=== PATIENT | female | born 1980 | race Caucasian/White ===

== ENCOUNTER → 2019-06-06 09:25 | Outpatient (CLI) | payer MEDICAID, SELFPAY ==
--- NOTE | 2019-06-06 09:33 | MRI_ITS ---
STUDY: BILATERAL BREAST MR WITHOUT AND WITH CONTRAST REASON FOR EXAM: Female, 38 years old. right breast ca TECHNIQUE: Multi-sequence multi-echo imaging of both breasts was performed with a dedicated breast coil. T1-weighted and T2-weighted images were performed before the administration of contrast. T1-weighted images were also performed after the administration of IV 17 CC DOTAREM without complications. COMPARISON: Mammogram dated 05/08/2019 and breast ultrasound dated 05/08/2019 FINDINGS: RIGHT BREAST: The breast tissue is scattered fibroglandular densities with no background enhancement. Exam is somewhat limited due to the anterior portion of the breast touching the breast coil which does produce signal artifact in this location. Malignancy in this location could be obscured. There is an 18 mm mass in the superior outer aspect of the right breast approximately 10 cm from nipple. This was biopsied and shown to represent a malignancy. There are no other abnormal enhancing masses or areas of non-mass enhancement in the right breast. There is an abnormal 2 cm axillary lymph node which was biopsied and shown to represent malignancy. There are additional lymph nodes which appear to have thickened cortexes and minimal enhancement. These could potentially have cancer within them. LEFT BREAST: The breast tissue is scattered fibroglandular densities with no background enhancement. Exam is somewhat limited due to the anterior portion of the breast touching the breast coil which does produce signal artifact in this location. Malignancy in this location could be obscured. There are no abnormal enhancing masses or areas of non-mass enhancement in the left breast. There are no enlarged or abnormal lymph nodes. There is no abnormality in the visualized regions of the chest or liver. MRI/Breast Bilateral W/O and W IMPRESSION: There is a malignancy in the right breast and a malignant right axillary lymph node. Surgical consultation is recommended as well as radiation oncology and medical oncology consultation. CATEGORY: BIRADS Category 6: Known Biopsy-Proven Malignancy - Appropriate Action Should Be Taken. A letter regarding these results will be sent to the patient by the facility within 30 days. Electronically Signed: Felicia Puente DO at 15:45 EDT Tel , Service support ,
== END ==
PROVIDERS: PCP Family Medicine; Referring Provider Internal Medicine Hematology & Oncology; Visit Provider Internal Medicine Hematology & Oncology
DX: C50.511 Malignant neoplasm of lower-outer quadrant of right female breast (principal)
CPT/HCPCS: 77049; A9575; A4216; C8908

== ENCOUNTER 2022-03-25 05:57 | Day surgery (SDC) | payer MEDICAID, SELFPAY ==
[2022-03-25] VITALS (7 sets, daily range): BP systolic 123–143; BP diastolic 81–102; PULSE 66–81; RESP 16–18; TEMP 36.1–37.3; O2SAT 98–100; BMI 35.6
[2022-03-25 06:41] LABS: Hematocrit 42.5 % (37-47); Hemoglobin 13.5 g/dL (12.0-15.0); Mean Corp Hgb Conc 31.8 g/dL (32-36); Mean Corpuscular Hgb 24.9 pg (27.0-32.0); Mean Corpuscular Volume 78.3 fL (81-99); Mean Platelet Vol. 9.3 fl (6.2-12.0); Platelet Count 237 K/mm3 (150-450); RBC Distribution Width CV 14.6 % (11.6-14.6); RBC Distribution Width SD 41.1 fl (35.1-43.9); Red Blood Count 5.43 M/mm3 (4.2-5.4); White Blood Count 8.5 K/mm3 (4.4-11.0)
[2022-03-25 06:42] LABS: Internal QC Validated? YES +Cl - CLEAR BKGD; Pregnancy, Urine Negative Negative
[2022-03-25] MEDS: Lactated Ringers 1,000 ML 15 ML IV (06:48)
--- NOTE | 2022-03-25 07:27 | DCINST_ITS ---
Discharge Instructions Diet Discharge Diet: No restrictions Activity Discharge Activity: May Drive (once you are more than 24 hours out from surgery) and May Shower (once you are more than 24 hours out from surgery) Return to work on:: 03/28/22 May resume sexual activity in: 1-2 weeks (Nothing in the vagina and no soaking in water for 1-2 weeks while you are having the vaginal bleeding) Weight Bearing Status: Weight bearing as tolerated Lifting Restrictions: None Dressing / Incision Call your doctor if you observe: Fever of 101 or Higher, Coldness, Increased Pain, Numbness or Tingling, Change in Color, Inability to urinate, Inability to have a bowel movement, Using more than 1 pad per hour, Shortness of breath, Dizziness, Fainting spells, Swelling in the ankles, Chest pain, Increased palpitations (irregular heartbeat), Calf discomfort and Uncontrolled pain Follow Up Care Please Follow Up With: Gabbie Barrera DO When: 1-2 weeks post op Test Results: Test results from this visit will be discussed in further detail at your follow- up appointment, if applicable. Discharge Plan Admission Primary Reason for Your Visit: surgery Attending Provider: Gabbie Barrera Primary Care Provider: Tania PhysicianCristal Primary Discharge Orders/Prescriptions Prescriptions: Continued multivitamin Tablet 1 tab PO DAILY omeprazole 40 mg capsule,delayed release(DR/EC) 40 mg PO DAILY Label Comments: TAKE 1 CAPSULE BY MOUTH ONCE DAILY citalopram 20 mg tablet 20 mg PO DAILY Label Comments: TAKE 1 TABLET BY MOUTH ONCE DAILY montelukast [Singulair] 10 mg Tablet 10 mg PO DAILY albuterol sulfate 90 mcg/actuation HFA aerosol inhaler 2 puff INHALATION PRN PRN (Reason: ASTHMA) Label Comments: INHALE 2 PUFFS BY MOUTH 4 TIMES DAILY NEEDED DIRECTED pseudoephedrine HCl 60 mg Tablet 60 mg PO Q6H PRN (Reason: DECONGESTANT) budesonide-formoterol [Symbicort] 160-4.5 mcg/actuation HFA aerosol inhaler 2 puff INHALATION BID Label Comments: INHALE 2 PUFFS BY MOUTH TWICE DAILY DIRECTED levocetirizine [Xyzal] 5 mg Tablet 5 mg PO DAILY Discontinued metronidazole 500 mg tablet 500 mg PO BID Label Comments: TAKE 1 TABLET BY MOUTH TWICE DAILY FOR 7 DAYS Referrals / Follow Up: Care Physician,No Primary [Primary Care Provider] - Disposition Disposition (needs filled in before D/C Order can be placed): Home, Self Care
--- NOTE | 2022-03-25 07:30 | EMB_PTH ---
PATIENT: WILFRIDO AN LOC: [facility] – [place] U#:[id number] AGE/SX: 41/F ROOM: RE03/25/[address]: Dr. Gabbie Barrera DO : 1980 BED: DIS: 03/25/2022 SPEC #: [id number] RECD: 03/25/22 11:08 STATUS: JESSICA MARK #: [id number] TEENA: 03/25/22 07:[address]: Gabbie Barrera DEPT: SURGICAL PATHOLOGY RECD BY: Shelby Garcia ENTERED: 03/25/22 13:41 SP TYPE: ENDOM BX/C ALEXANDREA DR: No Primary Care Phys Tissues: Endometrium, NOS Procedures: Surgery Specimen Level IV HEADER OPERATION: Hysteroscopy, D & C Symphion, polypectomy PRE-OP DIAGNOSIS: PMB, endometrial polyp TISSUE SUBMITTED: Endometrial curettings MICROSCOPIC DIAGNOSIS Endometrium, curettings: Mildly disordered proliferative endometrium. Rare fragments of benign squamous mucosa and squamous metaplastic epithelium. AM:rafael 03/28/2022 MICROSCOPIC DESCRIPTION Slides are reviewed. GROSS DESCRIPTION Received in fixative is one container labeled with the patient's name and designated endometrial curettings. The specimen consists of multiple irregular fragments of light to dark willard soft tissue that in aggregate measure 2.5 x 2 x 0.1 cm. The specimen is totally submitted in one cassette. / AM:rafael 03/25/2022 TC:5 CPT: 36482
[2022-03-25] MEDS: Lidocaine 1% (20 ml mdv) 20 ML Vial (07:42)
--- NOTE | 2022-03-25 08:03 | OP.PCM_ITS ---
Problems Associated Problem List Diagnoses (1) DUB (dysfunctional uterine bleeding): Report of Operation Date of Procedure: 03/25/22 Pre-Operative Diagnosis: DUB, endometrial polyp present on EMB, limited visibility of endometrial complex on pelvic ultrasound Post-Operative Diagnosis: DUB, uterine adhesion Surgery/Procedure Performed:: Hysteroscopy, resection of uterine adhesion band, D&C Description of Surgical Findings:: There was a thin adhesion band in the midline of the uterus between the anterior and posterior marcos. Otherwise normal appearing cavity. Normal appearing endometrium. Bilateral tubal ostia visualized. No endometrial or endocervical polyp noted. Descent of uterus and cervix to the mid vagina. Surgeon: Gabbie Barrera Type of Anesthesia: MAC Special Medications: None Specimen's removed: Endometrial curettings Drains: Elliott Estimated Blood Loss (mL): < 50 cc Fluids Replaced: 50 cc deficit Description of Procedure: The patient was taken to the operating room where MAC anesthesia was induced. She was prepped and draped in the dorsal lithotomy position using yellowfin stirrups. A speculum was placed in the vagina to expose the cervix. A single- tooth tenaculum was placed on the anterior lip of the cervix. 10 cc of local was injected circumferentially around the cervix. The cervix was serially dilated to accommodate the Symphion hysteroscope. The Symphion hysteroscope was advanced to the fundus of the uterus, and normal saline was used as distention media. Bilateral tubal ostia were visualized. There was a thin adhesion band noted in the midline of the uterus. The uterine cavity was otherwise normal- appearing. The cervical canal was inspected and normal-appearing. There were no polyps noted. Using the Symphion resection device the uterine adhesion band was resected. The hysteroscope was then removed. A sharp curettage was performed for a minimal amount of endometrial tissue. The endometrial curettings were sent to pathology for review. All instruments were removed. A vaginal sweep was performed. Bleeding was hemostatic. The patient was taken to the recovery in stable condition. Grafts/Implants Used: Holly Complications None Admit VTE Documentation VTE Present on Admission: No VTE Mechan Device Prophylaxis: SCD's
== END 2022-03-25 09:49 | disposition home or self-care (01) ==
LOC: SDC 06:00 → AC 06:02
PROVIDERS: Referring Provider Obstetrics & Gynecology; Visit Provider Obstetrics & Gynecology
PROC: 0UB98ZZ Excision of Uterus, Via Natural or Artificial Opening Endoscopic (ICD-10-PCS; CPT 58558; principal; 2022-03-25 07:15)
DX: N84.0 Polyp of corpus uteri (principal); N93.8 Other specified abnormal uterine and vaginal bleeding; N73.6 Female pelvic peritoneal adhesions (postinfective); J45.909 Unspecified asthma, uncomplicated; K21.9 Gastro-esophageal reflux disease without esophagitis; F32.A Depression, unspecified; F41.9 Anxiety disorder, unspecified; Z79.51 Long term (current) use of inhaled steroids; Z79.899 Other long term (current) drug therapy; Z85.3 Personal history of malignant neoplasm of breast; E66.9 Obesity, unspecified; Z68.35 Body mass index [BMI] 35.0-35.9, adult
CPT/HCPCS: 58558; 58559; 00952; 81025; 85027; 86850; 86900; 86901; 88305; J7120; J2405